=== PATIENT | female | born 1930 | race Two or more races ===

== ENCOUNTER 2016-12-19 16:15 | Emergency (ER) | payer OTHER ==
[2016-12-19 16:33] VITALS: TEMP 98.3; BMI 21.9
[2016-12-19] MEDS ORDERED: ONDANSETRON 4 MG/2 ML VIAL IVPB ONE (17:19)
--- NOTE | 2016-12-19 17:19 | PDOC ---
History of Present Illness - General History Source: Family Exam Limitations: Dementia - History of Present Illness Initial Comments: 12/19/16 17:32 The patient is an 86 year old female, with significant past medical history of dementia, gastritis GERD, DM, HLD, HTN, arthritis, and hyperthyroidism, who presents to the emergency room complaining of lower abdominal pain, 5 episodes of loose tarry bowel movements, and 1 episode of vomiting today. The patient is a poor historian secondary to dementia. History was obtained from her daughters. The patient reports diffuse lower abdominal pain that is 7/10 in severity. Her stool is loose, soft, and black in color. The patients vomit was watery and clear. The patients daughter notes that she has not eaten anything today, but has been burping a lot The daughter explains that the independent living facility where the patient resides, gives all of her medications with coffee in the morning and the patient does not feel like having breakfast or lunch afterwards. Denies fever, chills. Denies hematemesis. Denies chest pain, SOB. Allergies: Macrobid Surgical History: cholecystectomy <Alva Mckeon - Last Filed: 12/19/16 17:45> <Mariana Lopez - Last Filed: 12/21/16 16:50> - General Chief Complaint: Diarrhea Stated Complaint: VOMITING/DIARRHEA Time Seen by Provider: 12/19/16 16:42 Past History <Alva Mckeon - Last Filed: 12/19/16 17:45> - Past Medical History Diabetes: Yes GI Disorders: Yes (gerd, gastritis) HTN: Yes Hypercholesterolemia: Yes Thyroid Disease: Yes - Surgical History Cholecystectomy: Yes - Psycho/Social/Smoking Cessation Hx Anxiety: No Suicidal Ideation: No Smoking History: Never smoked Have you smoked in the past 12 months: No Information on smoking cessation initiated: No Hx Alcohol Use: No Drug/Substance Use Hx: No Substance Use Type: None <Mariana Lopez - Last Filed: 12/21/16 16:50> - Past Medical History Allergies/Adverse Reactions: Allergies Allergy/AdvReac Type Severity Reaction Status Date / Time nitrofurantoin Allergy Verified 12/19/16 22:07 Home Medications: Ambulatory Orders Amlodipine Besylate 10 mg PO DAILY 12/19/16 Ammonium Lactate Lotion [Lac-Hydrin 12% Lotion -] 1 applic TP ASDIR 12/19/16 Aspirin [ASA -] 81 mg PO DAILY 12/19/16 Atorvastatin Ca [Lipitor] 20 mg PO HS 12/19/16 Calcium 250Mg/Vit-D 125 Units [Oscal 250 mg+D -] 1 combo PO DAILY 12/19/16 Clotrimazole [Antifungal] 30 gm TP DAILY 12/19/16 Levothyroxine [Synthroid -] 88 mcg PO DAILY 12/19/16 Lisinopril [Prinivil] 20 mg PO DAILY 12/19/16 Memantine HCl [Namenda Xr] 21 mg PO DAILY 12/19/16 Metformin HCl 500 mg PO DAILY 12/19/16 Ranitidine HCl [Zantac] 150 mg PO DAILY 12/19/16 Review of Systems - Review of Systems Comments:: 12/19/16 17:36 CONSTITUTIONAL: Absent: fever, no chills, no fatigue EYES: Absent: visual changes ENT: Absent: ear pain, no sore throat CARDIOVASCULAR: Absent: chest pain, no palpitations RESPIRATORY: Absent: cough, no SOB GI: Present: diffuse lower abdominal pain, vomiting, loose tarry stool x 1day Absent: no constipation GENITOURINARY: Absent: dysuria, no frequency, no hematuria MUSCULOSKELETAL: Absent: back pain, no arthralgia, no myalgia SKIN: Absent: rash NEURO: Absent: headache <Emma Mckeonica - Last Filed: 12/19/16 17:45> *Physical Exam - Vital Signs Last Vital Signs Temp Pulse Resp BP Pulse Ox 98.3 F 79 18 145/63 100 12/19/16 16:30 12/19/16 16:30 12/19/16 16:30 12/19/16 16:30 12/19/16 16:30 - Physical Exam Comments: 12/19/16 17:37 GENERAL: Well-appearing, well-nourished. No apparent distress. Alert, but poor historian , moving all extremities. HEENT: Normocephalic, atraumatic. PERRL, EOM intact. CARDIOVASCULAR: Normal S1, S2. Regular rate and rhythm. PULMONARY: Clear to auscultation bilaterally. ABDOMEN: Soft, non-distended, non-tender. Hyperactive bowel sounds. No guarding. No rebound. RECTAL: +green/black stool. EXTREMITIES: +No pitting edema. Normal ROM in all four extremities. No gross deformities. SKIN: Warm, dry. No rash NEUROLOGICAL: No focal neurological deficits. <Alva Mckeon - Last Filed: 12/19/16 17:45> - Vital Signs Last Vital Signs Temp Pulse Resp BP Pulse Ox 98.3 F 79 18 145/63 100 12/19/16 16:30 12/19/16 16:30 12/19/16 16:30 12/19/16 16:30 12/19/16 16:30 <Mariana Lopez - Last Filed: 12/21/16 16:50> Heart Score/ECG Review #1 General ECG Interpretation: Sinus Rhythm, Normal Rate Compared to previous ECG there are: Previous ECG unavail 12/19/16 17:46 Possible left atrial enlargement <Alva Mckeon - Last Filed: 12/19/16 17:45> ED Treatment Course - LABORATORY CBC & Chemistry Diagram: 12/19/16 17:22 12/19/16 17:22 <Alva Mckeon - Last Filed: 12/19/16 17:45> - LABORATORY CBC & Chemistry Diagram: 12/19/16 17:22 12/19/16 17:22 <Mariana Lopez - Last Filed: 12/21/16 16:50> Medical Decision Making - Medical Decision Making 12/21/16 16:46 86 yo female from assisted living facility [facility] w daughter because she had 1 day of nausea vomiting and watery dark stool -benign abd exam -cbc unremarkable chemistries unremarkable stool occult negative for blood pt 's symptoms resolved amd the labs results were given to daughter -pt discharged back to facility imp gastroenteritis <Mariana Lopez - Last Filed: 12/21/16 16:50> *DC/Admit/Observation/Transfer - Attestations Scribe Attestion: 12/19/16 17:38 Documentation prepared by LUCIANO Castle, acting as medical economics consultant for Mariana Lopez MD. <Alva Mckeon - Last Filed: 12/19/16 17:45> <Mariana Lopez - Last Filed: 12/21/16 16:50> Diagnosis at time of Disposition: Diarrhea Qualifiers: Diarrhea type: unspecified type Qualified Code(s): R19.7 - Diarrhea, unspecified - Discharge Dispostion Disposition: HOME Condition at time of disposition: Stable - Referrals Referrals: STAFF,NOT ON [Primary Care Provider] - - Patient Instructions Printed Discharge Instructions: DI for Diarrhea and Traveler's Diarrhea -- Adult Additional Instructions: please follow up with your regular physician return for any worsening symptoms
[2016-12-19] MEDS ORDERED: ONDANSETRON 4 MG/2 ML VIAL ONE (17:30)
[2016-12-19] MEDS ORDERED: SODIUM CHLORIDE 1,000 ML IV SCH (17:30)
[2016-12-19 17:45] LABS: BASOPHIL 0.9 % (0-2.0); EOSINOPHIL 0.2 % (0-4.5); MCH 28.2 pg (25.7-33.7); MCHC 31.8 g/dl (32.0-36.0); MEAN CELL VOLUME 88.6 fl (80-96); MEAN PLT VOLUME 7.1 fl (7.5-11.1); NEUTROPHILS 74.3 % (42.8-82.8); PLATELET COUNT 277 K/MM3 (134-434); RDW 15.8 % (11.6-15.6); WHITE BLOOD COUNT 8.1 K/mm3 (4.0-10.0)
[2016-12-19 17:57] LABS: INR 0.98 (0.82-1.09); PROTHROMBIN TIME (PATIENT) 10.8 SEC (9.98-11.88)
[2016-12-19 18:22] LABS: ALBUMIN 3.9 g/dl (3.4-5.0); ANION GAP 10 (8-16); BILIRUBIN,TOTAL 0.5 mg/dL (0.2-1.0); CALCIUM 9.3 mg/dL (8.5-10.1); CO2 25 mmol/L (21-32); CREATININE 0.8 mg/dL (0.55-1.02); GLUCOSE,RANDOM 102 mg/dL (74-106); SGPT/ALT 15 U/L (12-78); TOT PROT 7.4 g/dl (6.4-8.2)
[2016-12-19 18:23] LABS: ALK PHOS 67 U/L (45-117)
[2016-12-19 18:25] LABS: TROPONIN I < 0.02 ng/ml (0.00-0.05)
[2016-12-19 18:31] LABS: SGOT/AST 23 U/L (15-37)
[2016-12-19 19:48] LABS: URINE APPEARANCE CLEAR; URINE BILIRUBIN NEGATIVE (NEGATIVE); URINE BLOOD NEGATIVE (NEGATIVE); URINE COLOR COLORLESS; URINE GLUCOSE (UA) NEGATIVE (NEGATIVE); URINE KETONE TRACE (NEGATIVE); URINE LEUK ESTERASE NEGATIVE (NEGATIVE); URINE NITRITE NEGATIVE (NEGATIVE); URINE PROTEIN NEGATIVE (NEGATIVE); URINE UROBILINOGEN NEGATIVE E.U./dl (0.2-1.0)
[2016-12-19 22:33] VITALS: BP 134/62; PULSE 71
--- NOTE | 2016-12-20 14:09 | EKG ---
Test Reason : Blood Pressure : / mmHG Vent. Rate : 078 BPM Atrial Rate : 078 BPM P-R Int : 184 ms QRS Dur : 088 ms QT Int : 394 ms P-R-T Axes : 057 077 056 degrees QTc Int : 449 ms NORMAL SINUS RHYTHM POSSIBLE LEFT ATRIAL ENLARGEMENT BORDERLINE ECG NO PREVIOUS ECGS AVAILABLE Confirmed by SHEILA WELLER, JAMEEL ([id number]) on 12/20/2016 2:09:17 PM Referred By: Confirmed By:JAMEEL SOSA MD
== END 2016-12-19 22:33 | disposition home or self-care (01) ==
LOC: JER 16:15
PROC: 3E033GC Introduction of Other Therapeutic Substance into Peripheral Vein, Percutaneous Approach (ICD-10-PCS; principal; 2016-12-19)
PROC: 3E0337Z Introduction of Electrolytic and Water Balance Substance into Peripheral Vein, Percutaneous Approach (ICD-10-PCS; 2016-12-19)
DX: R19.7 Diarrhea, unspecified (principal); K21.9 Gastro-esophageal reflux disease without esophagitis; E11.9 Type 2 diabetes mellitus without complications; E78.5 Hyperlipidemia, unspecified; E05.90 Thyrotoxicosis, unspecified without thyrotoxic crisis or storm; Z79.82 Long term (current) use of aspirin; Z79.84 Long term (current) use of oral hypoglycemic drugs
CPT/HCPCS: 36415; 71010-TC; 80053; 81003; 82272; 82550; 83690; 84484; 85025; 85610; 86850; 86900; 86901; 93005; 93010; 96374; 99283-25